=== PATIENT | female | born 1955 | race Caucasian/White ===

== ENCOUNTER 2023-12-16 15:53 | Emergency (ER) | payer OTHER, MEDICARE, BC, SELFPAY ==
[2023-12-16 15:55] VITALS: BP 140/98; PULSE 97; O2SAT 97; BMI 34.0
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
== END 2023-12-16 17:40 | disposition home or self-care (01) ==
PROVIDERS: Emergency Provider Emergency Medicine Emergency Medical Services; PCP Family Medicine
DX: S80.02XA Contusion of left knee, initial encounter (principal); S80.01XA Contusion of right knee, initial encounter; V43.52XA Car driver injured in collision with other type car in traffic accident, initial encounter
CPT/HCPCS: 73562; 99283